=== PATIENT | male | born 1960 | race Two or more races ===

== ENCOUNTER → 2022-08-29 | Outpatient (CLI) | payer MEDICARE ==
[2022-08-29 12:27] LABS: ALKALINE PHOSPHATASE 80 U/L (46-116); ALT/SGPT 59 U/L (7.0-40); AST/SGOT 44 U/L (<34); BILIRUBIN,TOTAL 0.6 MG/DL (0.3-1.2); BLOOD UREA NITROGEN 13 MG/DL (9-23); CALCIUM LEVEL 9.2 MG/DL (8.3-10.6); CARBON DIOXIDE LEVEL 26 MMOL/L (20-31); CHLORIDE LEVEL 105 MMOL/L (98-107); CREATININE FOR GFR 1.15 MG/DL (0.70-1.30); GLOMERULAR FILTRATION RATE > 60.0 (>49); GLUCOSE, FASTING 105 MG/DL (74-106); POTASSIUM SERUM 4.8 MMOL/L (3.5-5.1); SODIUM LEVEL 137 MMOL/L (136-145); TOTAL PROTEIN 6.7 G/DL (5.7-8.2)
[2022-08-29 12:58] LABS: HEPATITIS B SURFACE ANTIBODY POSITIVE (POSITIVE)
[2022-08-29 16:35] LABS: HEPATITIS B SURFACE ANTIGEN NEGATIVE (NEGATIVE)
[2022-08-29 16:59] LABS: HEPATITIS C VIRUS ABY INDEX 0.08 INDEX (<0.8)
[2022-08-30 16:11] LABS: % CD8 Pos Lymph 42.1 % (12.0-35.5); ABS Basophils 0.1 x10E3/uL (0.0-0.2); ABS Eosinophils 0.1 x10E3/uL (0.0-0.4); ABS Monocytes 0.6 x10E3/uL (0.1-0.9); ABS Neutophils 5.8 x10E3/uL (1.4-7.0); Abs CD4 Helper 540 /uL (359-1519); Abs CD8 Suppres 842 /uL (109-897); CD4/CD8 Ratio 0.64 (0.92-3.72); Eosinophils 1 % (Not Estab.); HCT 46.6 % (37.5-51.0); HEPATITIS A IgG TOTAL Positive (Negative); HEPATITIS B CORE ANTIBODY IGG Negative (Negative); HGB 15.2 g/dL (13.0-17.7); HIV-1 RNA PCR QUANT 2 LC550285 40 copies/mL (.); HIV-1 RNA PCR QUANT 3 LC550285 1.602 (.); Immature Grans 0 % (Not Estab.); Lymphocytes 24 % (Not Estab.); MCHC 32.6 g/dL (31.5-35.7); MCV 83 fL (79-97); Monocytes 7 % (Not Estab.); Neutrophils 67 % (Not Estab.); Platelets 274 x10E3/uL (150-450); RBC 5.62 x10E6/uL (4.14-5.80); RDW 14.5 % (11.6-15.4); WBC 8.5 x10E3/uL (3.4-10.8)
== END ==
LOC: M PLALAB 09:05
PROVIDERS: ATTEND Internal Medicine Infectious Disease
DX: B20 Human immunodeficiency virus [HIV] disease (principal)

== ENCOUNTER → 2023-02-22 | Outpatient (CLI) | payer MEDICARE ==
[2023-02-22 17:14] LABS: ALBUMIN 3.9 G/DL (3.2-5.2); ALKALINE PHOSPHATASE 85 U/L (46-116); ALT/SGPT 61 U/L (7.0-40); AST/SGOT 35 U/L (<34); BILIRUBIN,TOTAL 0.3 MG/DL (0.3-1.2); BLOOD UREA NITROGEN 18 MG/DL (9-23); CALCIUM LEVEL 9.7 MG/DL (8.3-10.6); CARBON DIOXIDE LEVEL 23 MMOL/L (20-31); CHLORIDE LEVEL 107 MMOL/L (98-107); GLOMERULAR FILTRATION RATE > 60.0 (>49); GLUCOSE, FASTING 129 MG/DL (74-106); POTASSIUM SERUM 3.9 MMOL/L (3.5-5.1); SODIUM LEVEL 138 MMOL/L (136-145); TOTAL PROTEIN 6.6 G/DL (5.7-8.2)
== END ==
LOC: M PLALAB 11:30
PROVIDERS: ATTEND Internal Medicine Infectious Disease
DX: B20 Human immunodeficiency virus [HIV] disease (principal); R09.81 Nasal congestion